=== PATIENT | female | born 1985 | race African-American/Black ===

== ENCOUNTER 2016-11-02 11:49 | Emergency (ER) | payer SELFPAY ==
[~2016-11-02] VITALS: Ht 170.2 cm; Wt 72.6 kg
[2016-11-02 11:54] VITALS: BP 168/90
--- NOTE | 2016-11-02 13:09 | RADIOLOGY REPORT ---
EXAMINATION: XR SHOULDER, LEFT CLINICAL INFORMATION: Dislocation or fracture. Pain status post fall this a.m. COMPARISON: None TECHNIQUE: AP external rotation, Grashey, scapular Y, and axillary views of the left shoulder. FINDINGS: The bones and soft tissues are normal. No fracture. Glenohumeral and acromioclavicular alignment is anatomic with normal joint space. No abnormal soft tissue calcifications. IMPRESSION: Normal left shoulder.
[2016-11-02] MEDS ORDERED: IBUPROFEN800 M1 PO (13:17)
--- NOTE | 2016-11-02 13:18 | ED UPPER/LOWER EXTREMITY COMPL ---
History of Present Illness General Chief Complaint: Upper Extremity Injury Stated Complaint: LFT SHOULDER Source: patient Exam Limitations: no limitations Vital Signs & Intake/Output Vital Signs & Intake/Output Vital Signs Date Time Temp Pulse Resp B/P Pulse O2 O2 Flow FiO2 Ox Delivery Rate 11/02 1154 96.5 82 18 168/90 95 Room Air Allergies Coded Allergies: NO KNOWN ALLERGIES (11/02/16) Reconcile Medications Ibuprofen 800 MG TABLET 1 TAB PO TID pain Triage Note: 30 AM. PT STATES SHE FELL ON STAIRS THIS MORNING AND HELD ONTO RAILING CAUSING PULL TO SHOULDER. DENIES OTHER INJURIES. MED WITH IBUPROPHEN IN TRIAGE. XRAY ORDERED - PT DENIES CHANCE OF Triage Nurses Notes Reviewed? yes Onset: Abrupt Duration: hour(s): Severity: moderate, severe Pain/Injury Location: Left: Shoulder. Method of Injury: fall No Modifying Factors: none : No Patient currently breastfeeds: No HPI: 31-year-old female comes into emergency room for evaluation of left shoulder pain. Patient reports that she slipped going down her steps and grabbed onto the railing with her left shoulder and is having some pain since then. Denies any injury anywhere else on her body. Denies any head trauma. Denies any neck pain. Denies any other associated symptoms. Pain is located in the left posterior aspect of her shoulder. (HIRAL MEZA) Past History Travel History Traveled to [place] past 21 day No Medical History Any Pertinent Medical History? see below for history Neurological: NONE EENT: NONE Cardiovascular: NONE Respiratory: NONE Gastrointestinal: NONE Hepatic: NONE Renal: NONE Musculoskeletal: NONE Psychiatric: NONE Endocrine: NONE Blood Disorders: NONE Cancer(s): NONE SET BUILDER/Reproductive: NONE Surgical History Surgical History: RT ACL SX Psychosocial History What is your primary language Macedonian Tobacco Use: Current Daily Use Daily Tobacco Use Amount/Type: => 5 Cigarettes daily Family History Hx Contributory? No (HIRAL MEZA) Review of Systems Review of Systems Constitutional: Reports: no symptoms. EENTM: Reports: no symptoms. Respiratory: Reports: no symptoms. Cardiovascular: Reports: no symptoms. Gastrointestinal/Abdominal: Reports: no symptoms. Genitourinary: Reports: no symptoms. Musculoskeletal: Reports: see HPI. Skin: Reports: no symptoms. Neurological/Psychological: Reports: no symptoms. Hematologic/Endocrine: Reports: no symptoms. Immunological: Reports: no symptoms. All Other Systems: Reviewed and Negative (HIRAL MEZA) Physical Exam Physical Exam General Appearance: well developed/nourished, mild distress Head: atraumatic Eyes: Bilateral: normal appearance. Ears, Nose, Throat: normal ENT inspection, hearing grossly normal Neck: normal inspection Back: normal inspection Shoulder Left: normal range of motion, soft tissue tenderness Elbow Left: normal range of motion, normal inspection Hand Left: normal inspection, normal range of motion Neurologic/Tendon: normal sensation, normal motor functions, normal tendon functions, responds to pain, no evidence tendon injury, no pulse deficit Skin: intact, normal color, warm/dry Lymphatic: no anterior cervical jeffrey (HIRAL MEZA) Progress Differential Diagnosis: dislocation, fracture, septic arthritis, sprain, tendon injury, muscle strain Plan of Care: Orders Procedure Date/time Status URINE 11/02 1209 Complete Laboratory Tests 11/02/16 1210: Urine Test NEGATIVE Diagnostic Imaging: Viewed by Me: Radiology Read. Discussed w/RAD: Radiology Read. Comments: SERVICE DATE: 11/02/16-115 EXAM TYPE: RAD - XRY-SHOULDER COMPLETE-LEFT EXAMINATION: XR SHOULDER, LEFT CLINICAL INFORMATION: Dislocation or fracture. Pain status post fall this a.m. COMPARISON: None TECHNIQUE: AP external rotation, Grashey, scapular Y, and axillary views of the left shoulder. FINDINGS: The bones and soft tissues are normal. No fracture. Glenohumeral and acromioclavicular alignment is anatomic with normal joint space. No abnormal soft tissue calcifications. IMPRESSION: Normal left shoulder. (HIRAL MEZA) Departure Departure Disposition: HOME OR SELF CARE Condition: Stable Clinical Impression Primary Impression: Muscle strain of left shoulder Referrals: PATIENT HAS NO PRIMARY CARE DR (PCP/Family) Additional Instructions: Take ibuprofen as prescribed. Moist heat to left shoulder alternating with ice. Return if any concerns worsening symptoms. Please go over all results of today's visit with your primary care doctor. Contact your primary care doctor to let them know you were here in the emergency room. There may be nonspecific findings which may not be related to your visit today here in the emergency room but may require further evaluation and chronic monitoring by your primary care doctor. If you had a laceration today the chance of foreign body always remains. You should follow-up with your primary care doctor for recheck in 3-5 days for a wound check. If you had an x-ray done there is a chance that a fracture could have been missed on initial read and you should follow-up with your primary care doctor for repeat x-rays if symptoms persist. If your blood pressure was elevated here in the emergency room please have rechecked by her primary care doctor within the next 48 hours by your primary care doctor. If you were prescribed a narcotic here in the emergency room or any type of controlled substances you're not allowed to drive while taking this medication or operate any type of heavy machinery. Narcotics can make you feel lightheaded dizziness nausea and can cause constipation. You may need to pickling grader a stool softener. Thank you for choosing emergency room. Please return to the emergency room immediately if you have any other concerns worsening of symptoms. Departure Forms: Customer Survey General Discharge Information Prescriptions: Current Visit Scripts Ibuprofen 1 TAB PO TID #20 TAB (HIRAL MEZA) PA/JEWEL BEARING FACER Co-Sign Statement Statement: ED Attending supervision documentation- [] I saw and evaluated the patient. I have also reviewed all the pertinent lab results and diagnostic results. I agree with the findings and the plan of care as documented in the PA's/JEWEL BEARING FACER's documentation. [x] I have reviewed the ED Record and agree with the PA's/JEWEL BEARING FACER's documentation. [] Additions or exceptions (if any) to the PAs/JEWEL BEARING FACER's note and plan are summarized below: [] (ZELDA MCKEON DO)
== END 2016-11-02 13:26 ==
LOC: ERH 11:49
DX: S46.992A Other injury of unspecified muscle, fascia and tendon at shoulder and upper arm level, left arm, initial encounter (principal); W10.9XXA Fall (on) (from) unspecified stairs and steps, initial encounter; Y93.9 Activity, unspecified; Y92.9 Unspecified place or not applicable
CPT/HCPCS: 73030-LT; 81025

== ENCOUNTER 2017-01-04 13:02 | Emergency (ER) | payer OTHER ==
[~2017-01-04] VITALS: Ht 170.2 cm; Wt 72.6 kg
[~2017-01-04 13:02] MED LIST: IBUPROFEN800 M1 PO
[2017-01-04 13:05] VITALS: BP 136/88
--- NOTE | 2017-01-04 14:49 | ED THROAT/DENTAL COMPLAINT ---
History of Present Illness General Chief Complaint: Sore Throat, Dental Pain Stated Complaint: PT HAS PAIN IN THE RT SIDE TOOTH Source: patient, old records Exam Limitations: no limitations Vital Signs & Intake/Output Vital Signs & Intake/Output Vital Signs Date Time Temp Pulse Resp B/P B/P Pulse O2 O2 Flow FiO2 Mean Ox Delivery Rate 01/04 1305 97.6 92 14 136/88 96 Room Air Allergies Coded Allergies: NO KNOWN ALLERGIES (11/02/16) Reconcile Medications Amoxicillin/Potassium Clav (Augmentin 875-125 Tablet) 875 MG-125 MG TABLET 1 TAB PO BID DENTAL Ibuprofen 800 MG TABLET 1 TAB PO TID pain Oxycodone HCl/Acetaminophen (Percocet 5-325 MG Tablet) 5 MG-325 MG TABLET 1 TAB PO BID PRN PAIN Triage Note: 31 Y/O FEMALE C/O DENTAL PAIN SINCE LAST NIGHT. HAS BEEN TAKING IBUPROPHEN WITH NO RELIEF - LAST DOSE 1100. Triage Nurses Notes Reviewed? yes Onset: Abrupt Duration: day(s): (1), constant Timing: recent history Injury Environment: home Severity: moderate Severity Numbers: 6 Modifying Factors: Worsens With: eating. Associated Symptoms: DENIES : No Patient currently breastfeeds: No HPI: 31-year-old female presents to ER for evaluation laying right upper dental pain since last night. She denies any known injury or trauma however states she has had difficulty and problems with that tooth before. She's been taking ibuprofen without improvement. Patient denies any gingival swelling or abscess fever chills. She states she lost her insurance is attempting to get [facility] to set up with a dentist. (JOYA HARVEY) Past History Travel History Traveled to [place] past 21 day No Medical History Any Pertinent Medical History? 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 No (JOYA HARVEY) Review of Systems Review of Systems Constitutional: Reports: see HPI. All Other Systems: Reviewed and Negative Comments Review of systems: See HPI, All other systems negative. Constitutional, no chills no fever, no malaise HEENT: No visual changes no sore throat no congestion, Cardiovascular: No chest pain , no palpitation Skin: no rashes, no change in skin Respiratory: No dyspnea no cough no sputum GI: No nausea no vomiting, no diarrhea, : No dysuria Muscle skeletal: No joint pain, no back pain, no neck pain, Neurologic: No numbness , no headache Psych: No stress Heme/endocrine: No bruising no bleeding Immunology: No lymphadenopathy (JOYA HARVEY) Physical Exam Physical Exam General Appearance: well developed/nourished, alert, awake Mouth/Throat: dental tenderness Comments: Well-developed well-nourished patient in no apparent distress. Head/Face: Atraumatic, no maxillary/frontal sinus tenderness, no facial swelling Eyes: PERRL, EOMI, no conjunctival injection Ear:External auditory canals clear, no erythema, no FB. Nose: atraumatic.Normal inspection: Throat: Moist mucous membranes.Pharynx normal. No pharyngeal erythema/exudate seen. No stridor/drooling or assymetry. No swelling or edema. Right upper dental tenderness interval swelling no abscess Neck: Supple, no lymphadenopathy, FROM Back: FROM Cardiovascular: Regular rate and rhythms no murmurs rubs Respiratory: Chest nontender.There were no bony deformities, no asymmetry. No respiratory distress. Patient speaking in full complete sentences. Breath sounds clear to auscultation bilaterally: NO W/R/R Extremities: full range of motion Neuro: awake, alert, and oriented to person, place and time. There were no obvious focal neurologic abnormalities. Skin: Warm & dry;No appreciable rash on exposed skin Psych: Mood affect normal, normal memory normal judgment. Core Measures ACS in differential dx? No Severe Sepsis Present: No Septic Shock Present: No (JOYA HARVEY) Progress Differential Diagnosis: carious tooth, Ludwigs angina, odontogenic abscess, marielena -tonsillar abscess, stomatitis/gingivitis, tooth fracture Plan of Care: I discussed with the patient at length all of their results. I had an extensive conversation regarding need for close follow up with their primary care physician this week as well as return precautions. I answered all of their questions, they feel comfortable with the plan and follow-up care. I discussed the medications that they will receive with the patient. I gave them signs and symptoms that could indicate an adverse reaction. I have advised them to limit their activities until they can see how they respond to the medication. (JOYA HARVEY) Departure Departure Time of Disposition: 1457 Disposition: HOME OR SELF CARE Condition: Stable Clinical Impression Primary Impression: Toothache Referrals: PATIENT HAS NO PRIMARY CARE DR (PCP/Family) Additional Instructions: Follow-up with dental clinic list provided Augmentin, Percocet for breakthrough pain use caution as this is a narcotic and highly addictive no driving or drinking alcohol while taking. Ibuprofen every 8 hours this was sent to [facility] Departure Forms: Customer Survey General Discharge Information Prescriptions: Current Visit Scripts Amoxicillin/Potassium Clav (Augmentin 875-125 Tablet) 1 TAB PO BID #14 TAB Oxycodone HCl/Acetaminophen (Percocet 5-325 MG Tablet) 1 TAB PO BID PRN PAIN #10 TAB (JOYA HARVEY) PA/SET UP MOLD TECHNICIAN Co-Sign Statement Statement: ED Attending supervision documentation- [] I saw and evaluated the patient. I have also reviewed all the pertinent lab results and diagnostic results. I agree with the findings and the plan of care as documented in the PA's/SET UP MOLD TECHNICIAN's documentation. [] I have reviewed the ED Record and agree with the PA's/SET UP MOLD TECHNICIAN's documentation. [] Additions or exceptions (if any) to the PAs/SET UP MOLD TECHNICIAN's note and plan are summarized below: [] Resident Co-Sign Statement Statement: ED Attending supervision documentation- [x] I saw and evaluated the patient. I have also reviewed all the pertinent lab results and diagnostic results. I agree with the findings and the plan of care as documented in the Resident's documentation. [] I have reviewed the ED Record and agree with the Resident's documentation. [] Additions or exceptions (if any) to the Resident's note and plan are summarized below: [] 01/04/17 3:22 pm I have seen and personally examined the patient and I agree with the resident's evaluation. No chest pain lungs are clear.. (ZEDLA MCKEON DO)
[2017-01-04] MEDS ORDERED: PERCOCET 5-3251 EACH PO (14:59)
[2017-01-04] MEDS ORDERED: AUGMENTIN 875-1 EACH PO (14:59)
== END 2017-01-04 15:02 ==
LOC: ERH 13:02
DX: K08.89 Other specified disorders of teeth and supporting structures (principal)

== ENCOUNTER 2018-05-19 12:55 | Emergency (ER) | payer SELFPAY ==
[~2018-05-19] VITALS: Ht 170.2 cm; Wt 72.6 kg
[~2018-05-19 12:55] MED LIST changes: +AUGMENTIN 875-1 EACH PO; +PERCOCET 5-3251 EACH PO
[2018-05-19 12:59] VITALS: BP 138/94
--- NOTE | 2018-05-19 13:01 | ED THROAT/DENTAL COMPLAINT ---
History of Present Illness General Chief Complaint: Sore Throat, Dental Pain Stated Complaint: TOOTH INFECTION X2 WEEKS Source: patient Exam Limitations: no limitations Vital Signs & Intake/Output Vital Signs & Intake/Output Vital Signs Date Time Temp Pulse Resp B/P B/P Pulse O2 O2 Flow FiO2 Mean Ox Delivery Rate 05/19 1259 96.6 80 18 138/94 99 Room Air Room Air Allergies Coded Allergies: NO KNOWN ALLERGIES (11/02/16) Reconcile Medications Amoxicillin 875 MG TABLET 1 TAB PO BID toothache Amoxicillin/Potassium Clav (Augmentin 875-125 Tablet) 875 MG-125 MG TABLET 1 TAB PO BID DENTAL Hydrocodone/Acetaminophen (Hydrocodon-Acetaminophen 5-325) 5 MG-325 MG TABLET 1-2 TAB PO Q4-6 PRN PRN pain Ibuprofen 800 MG TABLET 1 TAB PO TID pain Oxycodone HCl/Acetaminophen (Percocet 5-325 MG Tablet) 5 MG-325 MG TABLET 1 TAB PO BID PRN PAIN Triage Note: PT TO ED WITH C/O RIGHT UPPER TOOTH PAIN, "CHIPPED TOOTH". HIRAL HICKMAN IN TRIAGE. Triage Nurses Notes Reviewed? yes Onset: Abrupt Duration: week(s): (2), constant Timing: remote history Injury Environment: home Severity: moderate, severe HPI: 33-year-old female comes into the emergency for further evaluation of right upper tooth pain. Patient reports is been going on for about 2 weeks. Denies any fever chills vomiting. Denies any other associated symptoms. Pain is sharp and throbbing. (Hiral Calvillo) Past History Travel History Traveled to [place] past 21 day No Medical History Any Pertinent Medical History? 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 No (Hiral Calvillo) Review of Systems Review of Systems Constitutional: Reports: no symptoms. EENTM: Reports: see HPI. Respiratory: Reports: no symptoms. Cardiovascular: Reports: no symptoms. GI: Reports: no symptoms. Genitourinary: Reports: no symptoms. Musculoskeletal: Reports: no symptoms. Skin: Reports: no symptoms. Neurological/Psychological: Reports: no symptoms. Hematologic/Endocrine: Reports: no symptoms. Immunologic/Allergic: Reports: no symptoms. All Other Systems: Reviewed and Negative (Hiral Calvillo) Physical Exam Physical Exam General Appearance: well developed/nourished, no apparent distress, alert Head: atraumatic Eyes: Bilateral: normal appearance. Nose: normal inspection Mouth/Throat: broken right upper molar, no abscess appreciated, tender, poor dentition Neck: normal inspection Cardiovascular/Respiratory: no respiratory distress Back: normal inspection Neurologic/Psych: awake, alert, oriented x 3 Skin: intact, normal color Core Measures ACS in differential dx? No Sepsis Present: No Sepsis Focused Exam Completed? No (Hiral Calvillo) Progress Differential Diagnosis: aspirated tooth, carious tooth, epiglottitis, odontogenic abscess, tooth fracture Plan of Care: 05/19/18 Patient clinically looks well. Patient is in no apparent distress. Patient is nontoxic appearing. No evidence of acute fracture. Patient started on oral antibiotics. Told to follow-up with dentist. (Hiral Calvillo) Departure Departure Disposition: HOME OR SELF CARE Condition: Stable Clinical Impression Primary Impression: Dental infection Secondary Impressions: Chipped tooth Referrals: Patient Has No Primary Care Dr (PCP/Family) Additional Instructions: Take amoxicillin and Vicodin as prescribed. Follow-up with dentist. Return if any concerns worsening symptoms. Please go over all results of today's visit with your primary care doctor. Contact your primary care doctor to let them know you were here in the emergency room. There may be nonspecific findings which may not be related to your visit today here in the emergency room but may require further evaluation and chronic monitoring by your primary care doctor. If you had a laceration today the chance of foreign body always remains. You should follow-up with your primary care doctor for recheck in 3-5 days for a wound check. If you had an x-ray done there is a chance that a fracture could have been missed on initial read and you should follow-up with your primary care doctor for repeat x-rays if symptoms persist. If your blood pressure was elevated here in the emergency room please have rechecked by [facility] primary care doctor within the next 48. If you were prescribed a narcotic here in the emergency room or any type of controlled substances you're not allowed to drive while taking this medication or operate any type of heavy machinery. Narcotics can make you feel lightheaded dizziness nausea and can cause constipation. You may need to picket labor union a stool softener. Thank you for choosing [facility] emergency room. Please return to the emergency room immediately if you have any other concerns worsening of symptoms. Departure Forms: Customer Survey General Discharge Information Prescriptions: Current Visit Scripts Amoxicillin 1 TAB PO BID #20 TAB Hydrocodone/Acetaminophen (Hydrocodon-Acetaminophen 5-325) 1-2 TAB PO Q4-6 PRN PRN pain #12 TAB (Hiral Calvillo) PA/WHEY DEPARTMENT OPERATOR Co-Sign Statement Statement: ED Attending supervision documentation- [] I saw and evaluated the patient. I have also reviewed all the pertinent lab results and diagnostic results. I agree with the findings and the plan of care as documented in the PA's/WHEY DEPARTMENT OPERATOR's documentation. [X] I have reviewed the ED Record and agree with the PA's/WHEY DEPARTMENT OPERATOR's documentation. [] Additions or exceptions (if any) to the PAs/WHEY DEPARTMENT OPERATOR's note and plan are summarized below: [] (Vira SCHNEIDER,Micha Casanova)
[2018-05-19] MEDS ORDERED: AMOXICILLIN875 M1 PO (13:14)
[2018-05-19] MEDS ORDERED: HYDROCODON-ACE1 EAC2 PO (13:14)
== END 2018-05-19 13:19 ==
LOC: ERH 12:55
DX: K04.7 Periapical abscess without sinus (principal); K03.81 Cracked tooth